=== PATIENT | female | born 1960 | race Caucasian/White ===

== ENCOUNTER 2020-01-28 08:54 | Outpatient (REF) | payer OTHER, SELFPAY ==
--- NOTE | 2020-01-28 09:03 | MM_ITS ---
EXAMINATION: BONE DENSITOMETRY CLINICAL INDICATION: Asymptomatic menopausal state. COMPARISON: This is the patient's baseline examination. TECHNIQUE: Using a [employer]ile DXA System (software version: 13.1) manufactured by [email or web address], dual-energy x-ray absorptiometry was performed of the lumbar spine and left hip. The images are of good technical quality. Summary results are attached. FINDINGS: AP SPINE L1-L2 (excluding L3 and L4): The data of L1-L4 has been changed to exclude the L3 and L4 vertebral bodies, because at these levels may cause overestimation of lumbar spine density. BMD 0.963 g/cm2, Z-score -0.9, T-score -1.7, osteopenia. LEFT FEMUR, NECK: BMD 0.831 g/cm2, Z-score -0.5, T-score -1.5, osteopenia. LEFT FEMUR, TOTAL: BMD 0.971 g/cm2, Z-score 0.3, T-score -0.3, normal. IDENTIFIED RISK FACTORS: Menopause. HISTORY OF FRACTURE: None listed. MEDICATIONS: None listed. MM/XR DEXA axial skeleton IMPRESSION: 1. DIAGNOSIS: Osteopenia based on the lowest T-score value of -1.7 in the lumbar spine applying World Health Organization criteria. 2. 10-YEAR FRACTURE RISK PREDICTION, FRAX: Major osteoporotic fracture (clinical spine, forearm, hip or shoulder) 7.6%. Hip fracture 0.6%. 3. Treatment Recommendations: NOF guidelines recommend consideration for treatment in postmenopausal women and men age 50 and older presenting with the following: -A hip or vertebral (clinical or morphometric) fracture. -T-score less than or equal to -2.5 at the femoral neck or spine after appropriate evaluation to exclude secondary causes. -Low bone mass at the hip or spine and a 10-year fracture probability by FRAX of greater than or equal to 3% for hip fracture or greater than or equal to 20% for major osteoporotic fracture based on the [place] adapted WHO algorithm. 4. Other Recommendations: All treatment decisions require clinical judgment and consideration of individual patient factors, including patient preferences, comorbidities, previous drug use, risk factors not captured in the FRAX model (e.g. frailty, falls, vitamin D deficiency, increased bone turnover, interval significant decline in bone density) and possible under or overestimation of fracture risk by FRAX. Additional medical evaluation for secondary cause of low bone mineral density may be appropriate. FUTURE SCAN RECOMMENDATION: People with diagnosed cases of osteoporosis or at high risk for fracture should have regular bone mineral density tests. For patients eligible for Medicare, routine testing is allowed once every 2 years. The testing frequency can be increased to one year for patients who have rapidly progressing disease, those who are receiving or discontinuing medical therapy to restore bone mass, or have additional risk factors.
--- NOTE | 2020-01-28 09:04 | MM_ITS ---
EXAMINATION: MM SCREENING DIGITAL BREAST TOMOSYNTHESIS, BILATERAL CLINICAL INFORMATION: Screening. Asymptomatic. Family history breast cancer in sister (age 40), as well as paternal and maternal aunts. The lifetime risk of breast cancer based on the Tyrer-Cuzick Model is 29%. COMPARISON: Outside mammography: 08/20/2018, 08/16/2017, 06/28/2016 TECHNIQUE: Digital breast tomosynthesis is performed in both the craniocaudal and mediolateral oblique views along with computer-aided detection (CAD). Synthesized 2D images are generated from the tomosynthesis. FINDINGS: There are scattered areas of fibroglandular density (ACR BI-RADS breast composition Category b). There are no significant masses, abnormal calcifications, or other abnormalities. There is a 0.6 cm smooth nodule central outer left breast, prior measurement 1.3 cm, suggesting regressing cyst. There is a biopsy clip marker again seen left mid upper outer quadrant. No significant changes from prior outside studies. MM/MM tomosynthesis screening BI IMPRESSION: No mammographic evidence of malignancy. ASSESSMENT: BI-RADS 2: Benign RECOMMENDATION: 1. Routine annual mammography screening. 2. The lifetime risk of breast cancer based on the Tyrer-Cuzick Model is 29%. Additional annual adjunct screening with breast MRI may be of benefit in women with a risk score of 20% or greater. This patient's information was entered into a reminder system with a target due date for their next mammogram.
[2020-03-04 08:20] LABS: SARS-COV-2 PCR UMBRL Not Detected
[2020-03-10 08:18] LABS: SARS-COV-2 PCR UMBRL Not Detected
[2020-03-18 11:15] LABS: SARS-COV-2 PCR UMBRL Not Detected
[2020-03-25 13:22] LABS: SARS-COV-2 PCR UMBRL Not Detected
== END 2020-01-28 08:55 | disposition home or self-care (01) ==
LOC: HO.MAMMO 08:54
PROVIDERS: PCP Internal Medicine; Visit Provider Internal Medicine
DX: Z12.31 Encounter for screening mammogram for malignant neoplasm of breast (principal); Z13.820 Encounter for screening for osteoporosis; Z78.0 Asymptomatic menopausal state; Z80.3 Family history of malignant neoplasm of breast
CPT/HCPCS: 36415; 77063; 77067; 77080; 87635; C9803; U0003

== ENCOUNTER 2020-02-26 08:26 | Outpatient (REF) | payer OTHER, SELFPAY ==
[2020-02-26 09:20] LABS: Cholesterol 267 mg/dL; Glucose Fasting 85 mg/dL (60-99); HDL Cholesterol 63 mg/dL; LDL Cholesterol Calculated 185 mg/dl; Triglycerides 99 mg/dL
== END 2020-02-26 08:27 | disposition home or self-care (01) ==
LOC: HO.LAB 08:26
PROVIDERS: PCP Internal Medicine; Visit Provider Internal Medicine
DX: Z00.00 Encounter for general adult medical examination without abnormal findings (principal)
CPT/HCPCS: 80061; 82947

== ENCOUNTER 2020-04-20 10:22 | Outpatient (REF) | payer OTHER, SELFPAY ==
[2020-04-20 10:41] LABS: COVID-19 Test Negative (Negative)
== END 2020-04-20 10:23 | disposition home or self-care (01) ==
LOC: HO.EMPCOV 10:22
PROVIDERS: Visit Provider Internal Medicine
DX: Z20.822 Contact with and (suspected) exposure to COVID-19 (principal)
CPT/HCPCS: 36415; 87635; C9803

== ENCOUNTER 2020-10-27 08:26 | Outpatient (REF) | payer OTHER, SELFPAY ==
--- NOTE | ~2020-10-27 | XR_ITS ---
EXAMINATION: XR FOOT, RIGHT CLINICAL INFORMATION: Right foot pain. Rule out heel spur COMPARISON: None TECHNIQUE: AP, lateral, and oblique views of the right foot. FINDINGS: The bones and soft tissues are normal. No fracture. Alignment is anatomic. Joint spaces are maintained. XR/XR foot RT min 3V IMPRESSION: Unremarkable right foot.
== END 2020-10-27 08:27 | disposition home or self-care (01) ==
LOC: HO.XRAY 08:26
PROVIDERS: PCP Internal Medicine; Visit Provider Chiropractor
DX: M79.671 Pain in right foot (principal)
CPT/HCPCS: 73630

== ENCOUNTER 2020-12-15 07:00 | Outpatient (RCR) | payer OTHER, SELFPAY | END 2021-05-06 14:45 | disposition home or self-care (01) | LOC: HO.PT 07:00 | PROVIDERS: PCP Internal Medicine; Visit Provider Internal Medicine | DX: M72.2 Plantar fascial fibromatosis (principal) | CPT/HCPCS: 97033; 97035; 97110; 97140; 97162 ==

== ENCOUNTER → 2021-01-04 12:18 | Outpatient (BNVA) | payer OTHER, SELFPAY | PROVIDERS: Visit Provider Physician Assistant | DX: M72.2 Plantar fascial fibromatosis (principal) | CPT/HCPCS: 20550; 99212; J1020 ==

== ENCOUNTER 2021-01-19 07:00 | Outpatient (RCR) | payer OTHER, SELFPAY | END 2021-02-17 07:40 | disposition home or self-care (01) | LOC: HO.PT 07:00 | PROVIDERS: PCP Internal Medicine; Visit Provider Internal Medicine | DX: M54.9 Dorsalgia, unspecified (principal) | CPT/HCPCS: 97014; 97110; 97140; 97162 ==

== ENCOUNTER 2021-03-03 16:08 | Outpatient (REF) | payer OTHER, SELFPAY ==
--- NOTE | ~2021-03-03 | MR_ITS ---
EXAMINATION: MR RIGHT FOOT WITH AND WITHOUT CONTRAST CLINICAL INFORMATION: Chronic foot pain, plantar fasciitis. Rule out heel spurs. COMPARISON: None TECHNIQUE: Multiplanar MR imaging was obtained to the right foot on a 1.5 Joy magnet without without intravenous contrast material. FINDINGS: ACHILLES TENDON: Normal. OTHER TENDONS: Intact. LIGAMENTS: Intact. BONE AND ARTICULAR CARTILAGE: Marrow signal is present at the plantar aspect of the calcaneal tuberosity with associated cortical irregularity and enthesopathic spurring. No fracture or malalignment. Articular cartilage appears well preserved. No talar osteochondral injuries. JOINT FLUID AND SOFT TISSUES: There is a ganglion cyst at the posteromedial margin of the subtalar joint extending into the sinus tarsi. This cyst has a dominant component measuring 1.2 x 0.6 x 1.5 cm. There is moderate fatty atrophy of the abductor digiti minimi muscle without significant edema signal. Musculature is otherwise unremarkable. No enhancing lesions. PLANTAR FASCIA: Central band of the plantar fascia is markedly thickened (9 mm) with associated intrasubstance and surrounding soft tissue edema signal. There is a small interstitial partial tear at the central band. The lateral band is involved to a lesser extent. SINUS TARSI AND TARSAL TUNNEL: The aforementioned 1.5 cm ganglion cyst is situated at the anterior margin of the sinus tarsi but does not appear to produce significant mass effect upon the tibial neurovascular structures. Sinus tarsi is unremarkable. MR/MR foot RT wo/w con IMPRESSION: 1. Severe plantar fasciitis with a small interstitial partial tear. 2. Fatty atrophy of the abductor digiti minimi. 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 3. No acute ligamentous abnormalities or tendon pathology.
== END 2021-03-03 16:09 | disposition home or self-care (01) ==
LOC: HO.MRI 16:08
PROVIDERS: PCP Internal Medicine; Visit Provider Internal Medicine
DX: M79.671 Pain in right foot (principal)
CPT/HCPCS: 73720; A9585

== ENCOUNTER 2021-03-18 08:38 | Outpatient (REF) | payer OTHER, SELFPAY ==
--- NOTE | ~2021-03-18 | MM_ITS ---
EXAMINATION: MM SCREENING DIGITAL BREAST TOMOSYNTHESIS, BILATERAL CLINICAL INFORMATION: Screening. Asymptomatic. The lifetime risk of breast cancer based on the Tyrer-Cuzick Model is 14%. COMPARISON: Mammography: 01/28/2020, outside mammography 08/20/2018, 08/16/2017 ([facility]). TECHNIQUE: Digital breast tomosynthesis is performed in both the craniocaudal and mediolateral oblique views along with computer-aided detection (CAD). Synthesized 2D images are generated from the tomosynthesis. FINDINGS: There are scattered areas of fibroglandular density (ACR BI-RADS breast composition Category b). There are no significant masses, abnormal calcifications, or other abnormalities. Circumscribed nodule mid 1:00 left breast is decreased from outside exam consistent with regressing cyst. There is a biopsy clip marker again seen mid 3:00 left breast with small adjacent stable nodular asymmetry. Dermal lesion overlies posterior upper right breast. No significant changes. MM/MM tomosynthesis screening BI IMPRESSION: No significant changes prior studies. ASSESSMENT: BI-RADS 2: Benign RECOMMENDATION: Routine annual mammography screening. This patient's information was entered into a reminder system with a target due date for their next mammogram.
== END 2021-03-18 08:39 | disposition home or self-care (01) ==
LOC: HO.MAMMO 08:38
PROVIDERS: PCP Internal Medicine; Visit Provider Internal Medicine
DX: Z12.31 Encounter for screening mammogram for malignant neoplasm of breast (principal)
CPT/HCPCS: 77063; 77067

== ENCOUNTER → 2021-12-28 09:12 | Outpatient (RCR) | payer OTHER, SELFPAY ==
[2020-01-20 08:04] LABS: COVID-19 Test Negative (Negative)
[2020-01-26 09:37] LABS: COVID-19 Test Negative (Negative)
[2020-02-02 09:10] LABS: COVID-19 Test Negative (Negative)
[2020-02-09 09:03] LABS: COVID-19 Test Negative (Negative); IDNOW Serial# 9DD0AD1C
== END | disposition home or self-care (01) ==
LOC: HO.EMPCOV 01-20 07:25
PROVIDERS: PCP Internal Medicine; Visit Provider Internal Medicine
DX: Z20.828 Contact with and (suspected) exposure to other viral communicable diseases (principal)
CPT/HCPCS: 87635; C9803; U0003

== ENCOUNTER 2022-03-08 07:25 | Outpatient (REF) | payer OTHER, SELFPAY ==
[2022-03-08 07:32] LABS: MANUAL DIFF FLAG NO
[2022-03-08 08:12] LABS: Basophils Absolute Auto 0.1 X10*3/uL (0.0-0.2); Basophils Percent Auto 1.1 % (0-2); Eosinophils Absolute Auto 0.2 X10*3/uL (0.0-0.4); Hematocrit 35.5 % (37.0-47.0); Hemoglobin 11.3 g/dl (12.0-16.0); Imm Gran Abs Auto 0.02 X10*3/uL (0.00-0.03); Imm Gran Pct Auto 0.4 % (0.0-0.4); Lymphocytes Absolute Auto 1.5 X10*3/uL (1.2-4.9); Lymphocytes Percent Auto 27.1 % (20-40); Mean Corpuscular HGB Conc 31.8 g/dl (31.0-35.0); Mean Corpuscular Hemoglobin 27.2 pg (27.0-33.0); Mean Corpuscular Volume 85.3 fL (80.0-98.0); Mean Platelet Volume 9.7 fL (9.4-12.3); Monocytes Absolute Auto 0.5 X10*3/uL (0.1-1.2); Monocytes Percent Auto 8.2 % (2-11); Neutrophils Absolute Auto 3.4 x10*3/uL (2.0-8.3); Neutrophils Percent Auto 60.2 % (45-73); Platelet Count 372 X10*3/uL (160-400); Red Blood Count 4.16 X10*6/uL (4.20-5.50); Red Cell Distribution Width 13.8 % (11.0-16.0); White Blood Count 5.6 X10*3/uL (4.8-10.8)
[2022-03-08 09:14] LABS: Anion Gap 10 (12-20); Blood Urea Nitrogen 13 mg/dL (9-16); Calcium 9.3 mg/dL (8.4-10.2); Carbon Dioxide 29 mmol/L (22-29); Chloride 106 mmol/L (96-108); Cholesterol 261 mg/dL; Estimated Glomerular Filt Rate > 60; Glucose Random 103 mg/dL (60-115); HDL Cholesterol 66 mg/dL; LDL Cholesterol Calculated 170 mg/dl; Potassium 4.6 mmol/L (3.3-5.1); Sodium 140 mmol/L (135-145); Triglycerides 125 mg/dL
== END 2022-03-08 07:26 | disposition home or self-care (01) ==
LOC: HO.LAB 07:25
PROVIDERS: PCP Internal Medicine; Visit Provider Internal Medicine
DX: Z00.00 Encounter for general adult medical examination without abnormal findings (principal); Z13.6 Encounter for screening for cardiovascular disorders; R53.83 Other fatigue
CPT/HCPCS: 36415; 80048; 80061; 84443; 85025

== ENCOUNTER 2022-03-27 07:25 | Outpatient (REF) | payer OTHER, SELFPAY ==
--- NOTE | ~2022-03-27 | MM_ITS ---
EXAMINATION: MM DIAGNOSTIC DIGITAL BREAST TOMOSYNTHESIS, BILATERAL US DIAGNOSTIC ULTRASOUND BREAST, RIGHT CLINICAL INFORMATION: Due for yearly. Recent right axillary tenderness. No palpable mass. No discharge. The lifetime risk of breast cancer based on the Tyrer-Cuzick Model is 10%. COMPARISON: Mammography: 03/18/2021; 6 outside mammography 08/20/2018, 08/16/2017 ([facility]). TECHNIQUE: Digital breast tomosynthesis is performed in both the craniocaudal and mediolateral oblique views along with computer-aided detection (CAD). Synthesized 2D images are generated from the tomosynthesis. Ultrasound right side is targeted to the area of clinical symptoms, axillary region. Grayscale imaging and color Doppler are performed without and with harmonics. FINDINGS: There are scattered areas of fibroglandular density (ACR BI-RADS breast composition Category b). Parenchymal pattern is similar to prior study. There is no developing density or interval mass or architectural abnormality. No abnormal calcifications. The axilla and skin contours are unremarkable. No adenopathy. No skin thickening or coarsening of the Abhilash's ligaments. Again, there is old biopsy clip marker mid upper outer left breast. Benign smooth nodule central mid upper outer left breast is decreased in size from outside exams consistent with regressing cyst. Ultrasound right axilla demonstrates no cystic or solid mass, architectural abnormality, skin thickening, or edema tracking in soft tissue planes. No lymphadenopathy. Incidental node near area of palpable concern shows normal bianca architecture and color flow and measures only 0.5 x 0.8 cm. Results are discussed with the patient at time of visit. MM/MM tomosynthesis diagnostic BI IMPRESSION: 1. No mammographic evidence of malignancy or inflammatory changes. 2. Unremarkable targeted right axillary ultrasound. ASSESSMENT: BI-RADS 2: Benign RECOMMENDATION: 1. Patient's right axillary pain should be managed based on the clinical impression. 2. Otherwise, routine annual screening mammography. This patient's information was entered into a reminder system with a target due date for their next mammogram.
== END 2022-03-27 07:26 | disposition home or self-care (01) ==
LOC: HO.MAMMO 07:25
PROVIDERS: Visit Provider Internal Medicine
DX: N64.4 Mastodynia (principal)
CPT/HCPCS: 76642; 77062; 77066

== ENCOUNTER 2023-03-01 07:44 | Outpatient (REF) | payer OTHER, SELFPAY ==
--- NOTE | ~2023-03-01 | XR_ITS ---
EXAMINATION: LUMBAR SPINE, PELVIS AND LEFT HIP CLINICAL INFORMATION: Pain COMPARISON: None available. TECHNIQUE: 5 views lumbosacral spine, single view pelvis with 2 additional views left hip FINDINGS: Moderate degenerative changes are present in the lumbosacral spine with some mild disc space narrowing at L3-L4 and moderate disc space narrowing at L4-L5 and L5-S1. There is associated mild osteophytes and endplate sclerosis degenerative changes are present at the L3-L4 and L4-L5 facet joints bilaterally. No fractures or bony destructive lesions. Pelvis and hips appear normal. XR/XR hip LT w PEL1V IMPRESSION: Degenerative changes in the lumbosacral spine as described above.
--- NOTE | ~2023-03-01 | XR_ITS ---
EXAMINATION: LUMBAR SPINE, PELVIS AND LEFT HIP CLINICAL INFORMATION: Pain COMPARISON: None available. TECHNIQUE: 5 views lumbosacral spine, single view pelvis with 2 additional views left hip FINDINGS: Moderate degenerative changes are present in the lumbosacral spine with some mild disc space narrowing at L3-L4 and moderate disc space narrowing at L4-L5 and L5-S1. There is associated mild osteophytes and endplate sclerosis degenerative changes are present at the L3-L4 and L4-L5 facet joints bilaterally. No fractures or bony destructive lesions. Pelvis and hips appear normal. XR/XR lumbar spine 4V min IMPRESSION: Degenerative changes in the lumbosacral spine as described above.
== END 2023-03-01 07:45 | disposition home or self-care (01) ==
LOC: HO.XRAY 07:44
PROVIDERS: PCP Internal Medicine; Visit Provider Chiropractor
DX: R10.2 Pelvic and perineal pain (principal); M25.552 Pain in left hip
CPT/HCPCS: 72110; 73502

== ENCOUNTER 2023-03-28 15:39 | Emergency (ER) | payer OTHER, SELFPAY ==
[2023-03-28] VITALS (8 sets, daily range): BP systolic 96–112; BP diastolic 63–76; PULSE 64–78; RESP 13–18; TEMP 36.4–36.8; O2SAT 94–99; BMI 25.7
--- NOTE | 2023-03-28 16:01 | ECG_ITS ---
Test Reason : NEAR SYNCOPE Blood Pressure : / mmHG Vent. Rate : 064 BPM Atrial Rate : 064 BPM P-R Int : 122 ms QRS Dur : 070 ms QT Int : 428 ms P-R-T Axes : 035 049 065 degrees QTc Int : 441 ms Normal sinus rhythm Normal ECG No previous ECGs available Referred By: Salima Gonzalez Electronically Signed By:NASIM ARRIAGA
[2023-03-28 16:18] LABS: MANUAL DIFF FLAG NO
[2023-03-28 16:21] LABS: Basophils Percent Auto 0.7 % (0-2); Eosinophils Absolute Auto 0.2 X10*3/uL (0.0-0.4); Eosinophils Percent Auto 3.8 % (0-4); Hematocrit 37.3 % (37.0-47.0); Hemoglobin 12.4 g/dl (12.0-16.0); Imm Gran Abs Auto 0.01 X10*3/uL (0.00-0.03); Imm Gran Pct Auto 0.2 % (0.0-0.4); Lymphocytes Absolute Auto 1.8 X10*3/uL (1.2-4.9); Lymphocytes Percent Auto 32.6 % (20-40); Mean Corpuscular HGB Conc 33.2 g/dl (31.0-35.0); Mean Corpuscular Hemoglobin 27.8 pg (27.0-33.0); Mean Corpuscular Volume 83.6 fL (80.0-98.0); Mean Platelet Volume 9.6 fL (9.4-12.3); Monocytes Absolute Auto 0.5 X10*3/uL (0.1-1.2); Monocytes Percent Auto 8.6 % (2-11); Neutrophils Percent Auto 54.1 % (45-73); Platelet Count 324 X10*3/uL (160-400); Red Blood Count 4.46 X10*6/uL (4.20-5.50); Red Cell Distribution Width 13.5 % (11.0-16.0); White Blood Count 5.6 X10*3/uL (4.8-10.8)
[2023-03-28] MEDS: 0.9 % Sodium Chloride 1,000 ML 999 ML IV (16:21)
[2023-03-28] MEDS: ondansetron HCL 4 MG/2 ML VIAL IVPUSH (16:23)
--- NOTE | 2023-03-28 16:26 | ED.DIZZY ---
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 She was able to sit down and staff presented to bedside to evaluate her and she was founf to be hypotensive 80/40 with pulse 84 and diaphoretic. She Donated blood at approximately 14:15, she reports today her hgb was an acceptable level, though the few times prior she attempted it was 1pt below cut-off, she also states her blood pressure was 90 SBP, also near cut-off. She has donated blood in the past without complication. She reports that she consumed a full lunch around 12:00, and has been consuming plenty of water. At the time of my examination she is feeling near normal, but states things still seem a little fuzzy . She denies any precipitating symptoms. Currently denies overt headache/ pain just fuzzy , chest pain, neck pian, SOB, ABD pain, numbness or tingling. Related Data Allergies Allergy/AdvReac Type Severity Reaction Status Date / Time Penicillins Allergy Mild Unknown Verified 01/04/21 12:32 Review of Systems Review of Systems: Yes all other systems are reviewed and are negative PMFSH Past Medical History Attestation statement: The following information was validated with the patient. Source: old records reviewed Onset Date is defined in the Problem List Problems that require an onset date and time if occurred within 24 hrs of arrival to the ED Aortic Dissection and Rupture; Neurologic impairment; Cardiopulmonary Arrest; Endotracheal Intubation; Insertion or Replacement of Mechanical Circulatory Assist Device Social History Social History Unable to assess alcohol history related to: Unable to respond Smoked in Last 30 Days: No Use of substances other than those prescribed or required for medical reasons: No Advance Directives: Yes Advance Directives Information Provided: No Advance Directives on File: No Patient : No Physical Exam Vital Signs: Vital Signs: Last Vital Signs Temp 98.2 F 03/28/23 18:17 Pulse 76 03/28/23 19:09 Resp 16 03/28/23 18:17 BP 112/76 03/28/23 19:09 Pulse Ox 98 03/28/23 18:17 O2 Del Method Room Air 03/28/23 18:17 BMI result Body Mass Index 25.7 Appearance: Alert.?Oriented to person, place and time. No acute distress.?Normal affect. Eyes: Pupils equal, round and reactive to light.? ENT: Pharynx normal.?? Neck: Normal inspection.? Neck supple.?? CVS: Heart sounds normal. Normal heart rate and rhythm.? Pulses normal.?? Respiratory: No respiratory distress.? Lung sounds clear to auscultation bilaterally?? Abdomen: Soft and non-tender. Normoactive bowel sounds. No pulsatile mass.?? Skin: Skin warm and dry.? Normal skin color.? ? Extremities: No lower extremity edema.? No calf ttp? Neuro: Moves all extremities spontaneously. Sensation intact bilaterally. CN II-XII intact. No focal neuro deficits. Ambulates with normal steady gait. NIH Stroke Scale Time: 16:15 Level of Consciousness: Alert Level of Consciousness Questions: Answers both questions correctly Level of Consciousness Commands: Performs both tasks correctly Best Gaze: Normal Visual: No visual loss Facial Palsy: Normal Motor Arm (Right): No drift Motor Arm (Left): No drift Motor Leg (Right): No drift Motor Leg (Left): No drift Limb Ataxia: Absent Sensory: Normal Best Language: No aphasia Dysarthia: Normal Extinction and Inattention: No abnormality Score: 0 Course Reevaluation(s) Reevaluation #1: CBC is without leukocytosis or anemia. CMP reveals elevated BUN at 20 and creatinine 1.06 which is slightly increased when compared to prior labs in February of 2022, I suspect any a component of dehydration attributing to her symptoms today, she is received 1 L IV fluids. Nursing staff was able to assess orthostatic vital signs from supine to sitting position, blood pressure increased rather than decreased, however due to her feelings of dizziness she felt unable to stand. Reevaluation #2: Delta troponin is negative, unlikely ACS. I suspect that her symptoms are secondary to vasovagal episode after recent blood draw and possible component of dehydration as well. She is feeling much improved at this time. Headache has resolved. She has had no further dizziness or nausea. She is eating and drinking normally. She has been ambulatory to the bathroom with a steady gait. Orthostatic vital signs negative. At this time feel that she is stable for discharge home, outpatient follow-up with primary care provider. Discussed worrisome signs and symptoms that would warrant re-evaluation in the emergency department, strict return precautions. All questions answered. Stable for discharge. Time: 20:09 Medications Administered Discontinued Medications Generic Name Dose Route Start Last Admin Trade Name Sharda PRN Reason Stop Dose Admin Acetaminophen 975 mg 03/28/23 17:16 03/28/23 17:26 Acetaminophen 325 Mg Tablet PO 03/28/23 17:17 975 mg ONCE ONE Administration Sodium Chloride 1,000 mls @ 999 mls/hr 03/28/23 16:15 03/28/23 17:43 Ns IV 03/28/23 17:15 Infused .Q1H1M [facility] Infusion Ondansetron HCl 4 mg 03/28/23 16:01 03/28/23 16:23 Ondansetron Hcl 4 Mg/2 Ml Vial IVPUSH 03/28/23 16:02 4 mg ONCE ONE Administration Medical Decision Making Medical Decision Making [facility] Narrative: Patient is a 62 year old female with pmhx depression who presents for near syncopal episode as per HPI soon after donating blood. She feels near normal now, with some head fuzziness and mild nausea. No focal neurological defecits. CA&Ox3, speaking clear full sentences. Vitals are stable, but BP is soft. I suspect a vasovagal episode in the setting of recent blood transfusion, however to exclude alternative etiology Will obtain CBC to evaluate for leukocytosis/ anemia, CMP and lipase to evaluate for abnormal electrolytes /abnormal renal function/ abnormal hepatic/biliary function, EKG and troponin to evaluate for ischemia/ACS, and orthostatic vital signs. Differential Diagnosis Differential Diagnoses: The differential diagnosis associated with the presentation includes (as noted above) Admission/Observation Consideration of admission/observation: Escalation of care including admission/observation considered (see narrative above and course narrative for further detail) Lab Data [facility] Lab Attestation statement: I reviewed the patient's lab results. (see course narrative) 03/28/23 16:12 03/28/23 16:12 Labs: Lab Results 03/28/23 03/28/23 03/28/23 Range/Units 16:12 16:45 18:53 WBC 5.6 (4.8-10.8) X10*3/uL RBC 4.46 (4.20-5.50) X10*6/uL Hgb 12.4 (12.0-16.0) g/dl Hct 37.3 (37.0-47.0) % MCV 83.6 (80.0-98.0) fL MCH 27.8 (27.0-33.0) pg MCHC 33.2 (31.0-35.0) g/dl RDW 13.5 (11.0-16.0) % Plt Count 324 (160-400) X10*3/uL MPV 9.6 (9.4-12.3) fL Immature Gran % (Auto) 0.2 (0.0-0.4) % Neut % (Auto) 54.1 (45-73) % Lymph % (Auto) 32.6 (20-40) % [place]t % (Auto) 8.6 (2-11) % Eos % (Auto) 3.8 (0-4) % Baso % (Auto) 0.7 (0-2) % Lymph # (Auto) 1.8 (1.2-4.9) X10*3/uL [place] # (Auto) 0.5 (0.1-1.2) X10*3/uL Eos # (Auto) 0.2 (0.0-0.4) X10*3/uL Baso # (Auto) 0.0 (0.0-0.2) X10*3/uL Abs Immat Gran (auto) 0.01 (0.00-0.03) X10*3/uL Absolute Neuts (auto) 3.0 (2.0-8.3) x10*3/uL Absolute Nucleated RBC 0.000 (0.0-0.012) X10*3/uL Nucleated RBC % (auto) 0.0 (0.0-0.2) /100WBC Sodium 139 (135-145) mmol/L Potassium 3.6 (3.3-5.1) mmol/L Chloride 106 (96-108) mmol/L Carbon Dioxide 24 (22-29) mmol/L Anion Gap 13 (12-20) BUN 20 H (9-16) mg/dL Creatinine 1.06 (0.5-1.4) mg/dL Estim Creat Clear Calc 56.7 Estimated GFR 53 POC Glucose 135 H (60-115) mg/dL Random Glucose 164 H (60-115) mg/dL Calcium 9.3 (8.4-10.2) mg/dL Magnesium 1.8 (1.6-2.6) mg/dL Total Bilirubin 0.3 (0.0-1.0) mg/dL AST 19 (5-31) U/L ALT 26 (0-31) U/L Alkaline Phosphatase 78 (39-117) U/L Troponin I High Sens < 2.7 < 2.7 (<3.5-17.0) ng/L B-Natriuretic Peptide 22 (<100) pg/mL Total Protein 6.8 (6.5-8.0) g/dL Albumin 4.0 (3.5-5.0) g/dL Independent Interpretation I performed an independent interpretation of an: EKG Interpretation: Rate: 64 Rhythm:? Normal sinus rhythm Patton:? Normal Normal P waves.? Normal JASIEL.?? Normal QRS complex.?? ST T wave :??No ST elevation, no ST depression, no T-wave inversion qTC: 441 prior studies:? No prior available for review The study has been interpreted contemporaneously by me. Independent Historian Clinical information obtained from an independent historian. History obtained from or confirmed by: Spouse (present at bedside, confirms pmhx) Discharge Plan Discharge Clinical Impression: Vasovagal syncope Patient Disposition: Home, Self-Care Instructions: Near Syncope (ED) Additional Instructions: Return back to emergency department any new or worsening symptoms or concerns. Persistent dizziness, passing out episodes, headache that will not go away, chest pain, shortness of breath, numbness or tingling of the extremities, difficulty walking, difficulty speaking. Please contact your primary care provider and arrange for a follow-up visit within 3 days. Be sure to stay well hydrated, eat small frequent meals, change position slowly if you begin to develop any dizziness. Referrals: Helder Billingsley MD [Primary Care Provider] -
[2023-03-28 16:36] LABS: Alanine Aminotransferase 26 U/L (0-31); Alkaline Phosphatase 78 U/L (39-117); Anion Gap 13 (12-20); Aspartate Amino Transferase 19 U/L (5-31); Bilirubin Total 0.3 mg/dL (0.0-1.0); Blood Urea Nitrogen 20 mg/dL (9-16); Calcium 9.3 mg/dL (8.4-10.2); Carbon Dioxide 24 mmol/L (22-29); Chloride 106 mmol/L (96-108); Creatinine Clr Calc Pharmacy 56.7; Estimated Glomerular Filt Rate 53; Glucose Random 164 mg/dL (60-115); Magnesium 1.8 mg/dL (1.6-2.6); Potassium 3.6 mmol/L (3.3-5.1); Sodium 139 mmol/L (135-145); Total Protein 6.8 g/dL (6.5-8.0)
[2023-03-28 16:41] LABS: B Type Natriuretic Peptide 22 pg/mL (<100)
[2023-03-28 16:43] LABS: Troponin-I High Sensitivity < 2.7 ng/L (<3.5-17.0)
[2023-03-28 16:49] LABS: Glucose, Whole Blood 135 mg/dL (60-115)
[2023-03-28] MEDS: Acetaminophen 325 MG TABLET 975 MG PO (17:26)
[2023-03-28 19:18] LABS: Troponin-I High Sensitivity < 2.7 ng/L (<3.5-17.0)
--- NOTE | 2023-03-28 19:43 | PC.NURSE ---
Patient was able to walk without issues, no dizziness noted. SOLIMAN with steady gait.
== END 2023-03-28 20:24 | disposition home or self-care (01) ==
PROVIDERS: Nurse Practitioner Family; Emergency Provider Internal Medicine; PCP Internal Medicine
DX: R55 Syncope and collapse (principal); R11.0 Nausea
CPT/HCPCS: 36415; 80053; 82947; 83735; 83880; 84484; 85025; 93005; 96361; 96374; 99284; 99285; J2405

== ENCOUNTER → 2023-03-28 16:01 | Outpatient (BNV) | payer OTHER, SELFPAY | PROVIDERS: Emergency Provider Internal Medicine; PCP Internal Medicine; Visit Provider Internal Medicine | DX: R55 Syncope and collapse (principal) | CPT/HCPCS: 93010 ==

== ENCOUNTER 2023-04-02 07:19 | Outpatient (REF) | payer OTHER, SELFPAY ==
--- NOTE | ~2023-04-02 | MM_ITS ---
EXAMINATION: MM SCREENING DIGITAL BREAST TOMOSYNTHESIS, BILATERAL CLINICAL INFORMATION: Screening. Asymptomatic. COMPARISON: Mammography: This study is compared with prior exams dating back to 2019. TECHNIQUE: Digital breast tomosynthesis is performed in both the craniocaudal and mediolateral oblique views along with computer-aided detection (CAD). Synthesized 2D images are generated from the tomosynthesis. FINDINGS: There are scattered areas of fibroglandular density (ACR BI-RADS breast composition Category b). There are no significant masses, abnormal calcifications, or other abnormalities. There is a tissue marker in the upper outer quadrant of the left breast from prior benign percutaneous biopsy. MM/MM tomosynthesis screening BI IMPRESSION: No mammographic evidence of malignancy. ASSESSMENT: BI-RADS BI-RADS 2 - Benign Findings RECOMMENDATION: Routine annual mammography screening. 1 year F/U This examination should not preclude the clinical evaluation of a suspicious palpable abnormality. This patient's information was entered into a reminder system with a target due date for their next mammogram.
== END 2023-04-02 07:20 | disposition home or self-care (01) ==
LOC: HO.MAMMO 07:19
PROVIDERS: PCP Internal Medicine; Visit Provider Internal Medicine
DX: Z12.31 Encounter for screening mammogram for malignant neoplasm of breast (principal)
CPT/HCPCS: 77063; 77067

== ENCOUNTER → 2023-04-02 07:30 | Outpatient (BNV) | payer OTHER, SELFPAY | PROVIDERS: PCP Internal Medicine; Visit Provider Radiology Diagnostic Radiology | DX: Z12.31 Encounter for screening mammogram for malignant neoplasm of breast (principal) | CPT/HCPCS: 77063; 77067 ==

== ENCOUNTER 2023-04-12 07:00 | Outpatient (RCR) | payer OTHER, SELFPAY | END 2023-05-04 15:11 | disposition home or self-care (01) | LOC: HO.PT 07:00 | PROVIDERS: PCP Internal Medicine; Visit Provider Internal Medicine | DX: M54.9 Dorsalgia, unspecified (principal) | CPT/HCPCS: 97110; 97140; 97161 ==

== ENCOUNTER 2023-04-24 07:27 | Outpatient (REF) | payer OTHER, SELFPAY ==
[2023-04-24 07:58] LABS: Alanine Aminotransferase 34 U/L (0-31); Alkaline Phosphatase 99 U/L (39-117); Anion Gap 13 (12-20); Aspartate Amino Transferase 34 U/L (5-31); Bilirubin Total 0.2 mg/dL (0.0-1.0); Blood Urea Nitrogen 16 mg/dL (9-16); Calcium 8.7 mg/dL (8.4-10.2); Carbon Dioxide 22 mmol/L (22-29); Chloride 109 mmol/L (96-108); Estimated Glomerular Filt Rate > 60; Glucose Random 95 mg/dL (60-115); Potassium 4.2 mmol/L (3.3-5.1); Sodium 140 mmol/L (135-145)
== END 2023-04-24 07:28 | disposition home or self-care (01) ==
LOC: HO.LAB 07:27
PROVIDERS: PCP Internal Medicine; Visit Provider Chiropractor
DX: R55 Syncope and collapse (principal)
CPT/HCPCS: 36415; 80053

== ENCOUNTER 2023-08-15 11:42 | Day surgery (SDC) | payer OTHER, SELFPAY ==
[2023-08-15 11:56] VITALS: BMI 26.8
[2023-08-15 12:00] VITALS: BMI 26.8
[2023-08-15 12:09] VITALS: BP 115/81; PULSE 75; RESP 16; TEMP 36.8; O2SAT 97
[2023-08-15] MEDS: Lactated Ringers 1,000 ML 100 ML IVCONT (12:21)
--- NOTE | 2023-08-15 12:43 | HO.ANESPROP2 ---
HPI - Anesthesia Eval Consult details Narrative: 62 yo F presenting for colonoscopy. PMFSH Active Problems Active Problems: All Active Problems Plantar fasciitis of right foot (Acute) Family History Family history of problems with anesthesia: No Surgical History History of Problems with Anesthesia: No Social History Social History Unable to assess alcohol history related to: Unable to respond Patient Tobacco Use Status: Never used Tobacco Use of substances other than those prescribed or required for medical reasons: No Are you DNR?: No Advance Directives: No Advance Directives Information Provided: Yes Meds Allergies Allergy/AdvReac Type Severity Reaction Status Date / Time Penicillins Allergy Mild Unknown Verified 01/04/21 12:32 Active Medications: Current Medications Lactated Ringer's (Lr) 1,000 mls @ 100 mls/hr IVCONT .Q10H [place] Last Admin: 08/15/23 12:21 Dose: 100 mls/hr Home Medications ?Medication ?Instructions ?Recorded ?Confirmed ?Last Taken ?Type buspirone 15 mg tablet 15 mg PO TID 08/15/23 08/15/23 Unknown History sertraline 100 mg tablet 100 mg PO DAILY 08/15/23 08/15/23 Unknown History Exam Exam Date and Time: August 15, 2023 1228 Height,Weight and Vital Signs: Height 5 ft 5 in Weight 73.113 kg Last Vital Signs Temp 98.3 F 08/15/23 12:09 Pulse 75 08/15/23 12:09 Resp 16 08/15/23 12:09 BP 115/81 08/15/23 12:09 Pulse Ox 97 08/15/23 12:09 O2 Del Method Room Air 08/15/23 12:09 Airway Mallampati Class: I TM Dist: >3cm Neck ROM: Full Partial: Upper and Lower Heart: S1S2 Lungs: CTAB Assessment and Plan Assessment Anesthesia Assessment: Anesthesia Plan Discussed and Chart Reviewed Final Anesthetic Review Family History of Problems with Anesthesia: No History of Problems with Anesthesia: No NPO: Yes ASA Class: I Final Preanesthetic Review: No Changes in Pt Med Stat, Meds/Allgs Chart Reviewed, Consent Obtained/Reviewed and Anes Risks/Benef Reviewed Patient Risk: Low Procedure Risk: Low Anesthetic Plan Anesthetic Plan: MAC: and Agree w/ Assess. and Plan Disposition: Standard PACU
--- NOTE | 2023-08-15 13:03 | MHC.SHP ---
Pre-Procedural Eval Section A - 24 Hr Update-Section A only Date of Service: 08/15/23 The patient is an INPATIENT: No Changes since office visit: No Cold of Flu in the past 2 weeks, No New Medical Problems, No Changes in Medication and No Patient answered all questions The patient has been examined within 24 hours of the surgical procedure. The History & Physical has been completed within 30 days and I have reviewed it.: Yes Section B - Complete if H&P > 30 days Chief Complaint: Encounter for screening for malignant neoplasm of Allergies: Allergies Allergy/AdvReac Type Severity Reaction Status Date / Time Penicillins Allergy Mild Unknown Verified 01/04/21 12:32 Plan I have reviewed the history and physical and performed a pertinent physical examination on my patient. No changes have occurred unless specified. Time Spent With Patient Time: Total time managing care of this patient today ____ minutes.
[2023-08-15 13:52] VITALS: BP 98/61; PULSE 66; RESP 16; TEMP 36.1; O2SAT 95
[2023-08-15 14:00] VITALS: BP 93/62; PULSE 60; RESP 16; O2SAT 98
[2023-08-15 14:15] VITALS: BP 105/70; PULSE 58; RESP 15; O2SAT 99
--- NOTE | 2023-08-15 15:48 | OP_ITS ---
DATE OF SERVICE: 08/15/2023 SURGEON: Jeff Jeffers MD INDICATIONS: Colon cancer screening and prior history of adenomatous colon polyps. PREOPERATIVE DIAGNOSIS: POSTOPERATIVE DIAGNOSIS: PROCEDURE PERFORMED: Colonoscopy to the terminal ileum with biopsy. ESTIMATED BLOOD LOSS: COMPLICATIONS: ANESTHESIA: Monitored anesthesia care. ASSISTANTS: SPECIMENS: DESCRIPTION OF PROCEDURE: A history and physical was performed. The risks and benefits of the procedure were explained to the patient and informed consent was obtained. The patient was placed in the left lateral decubitus position. A digital rectal exam was performed and was found to be normal. The Olympus pediatric video colonoscope was introduced into the rectum and advanced to the cecum. The cecum was identified by transillumination, palpation, and identification of ileocecal valve. Examination was performed and the scope was removed. She tolerated the procedure well and was returned to the recovery area in stable condition. FINDINGS: The terminal ileum was normal. The visualized colonic mucosa was normal. The quality of the prep was good. Two polyps were identified, both measured less than 5 mm and were removed with the biopsy forceps. These were located in the cecum and at 60 cm. No other polyps were identified. There was minimal sigmoid diverticulosis. Retroflexed examination showed some small internal hemorrhoids and hypertrophic anal papillae. IMPRESSION: Colon polyps. RECOMMENDATION: Follow up the biopsy results. MD JUSTINA Duarte/ELIOL / [id number]
== END 2023-08-15 15:05 | disposition home or self-care (01) ==
PROVIDERS: PCP Internal Medicine; Visit Provider Internal Medicine Gastroenterology
PROC: 0DJD8ZZ Inspection of Lower Intestinal Tract, Via Natural or Artificial Opening Endoscopic (ICD-10-PCS; CPT 45378; principal; 2023-08-15 13:00)
DX: Z12.11 Encounter for screening for malignant neoplasm of colon (principal); D12.0 Benign neoplasm of cecum; K63.5 Polyp of colon; K57.30 Diverticulosis of large intestine without perforation or abscess without bleeding; K64.8 Other hemorrhoids; K62.89 Other specified diseases of anus and rectum; Z86.010 Personal history of colon polyps; Z88.0 Allergy status to penicillin
CPT/HCPCS: 45380; 88305; J2704

== ENCOUNTER 2024-04-07 07:23 | Outpatient (REF) | payer OTHER, SELFPAY ==
--- OUTSIDE RECORDS SUMMARY | 2024-04-07 07:26 | XMS_ITS ---
Author Organization [facility] Address [address] [place] [address] Care Team Providers Care Director Fraud Name Role Phone Helder Billingsley MD Primary Care Provider Jeff Michel Jr Unavailable REASON FOR VISIT screening Encounters Encounter Location Date Provider Diagnosis [facility] [place] [address] [place] [phone] 08/15/2023 Jeff Jeffers Jr Encounter for screening colonoscopy Z12.11 and Colon polyps K63.5 ASSESSMENTS Encounter Date Diagnosis Assessment Notes Treatment Notes Treatment Clinical Notes 08/15/2023 Encounter for screening colonoscopy (ICD-10 - Z12.11) 08/15/2023 Colon polyps (ICD-10 - K63.5) PLAN OF TREATMENT No Information
--- OUTSIDE RECORDS SUMMARY | 2024-04-07 07:26 | XMS_ITS ---
Author Organization [facility] Address [address] [place] [phone] Care Team Providers Care Chaser Helper Name Role Phone Helder Billingsley MD Primary Care Provider Jeff Michel Jr Unavailable REASON FOR VISIT pathology Encounters Encounter Location Date Provider Diagnosis [facility] [address] [place] [phone] 08/20/2023 Jeff Jeffers Jr PLAN OF TREATMENT No Information
--- OUTSIDE RECORDS SUMMARY | 2024-04-07 07:26 | XMS_ITS ---
Author Organization [facility] Address [address] [place] [address] Care Team Providers Care Volunteer Services Manager Name Role Phone Helder Billingsley MD Primary Care Provider Jeff Michel Jr [phone] REASON FOR VISIT H & P Encounters Encounter Location Date Provider Diagnosis [facility] [address] [place] [address] 08/14/2023 Jeff Jeffers Jr PLAN OF TREATMENT No Information
--- OUTSIDE RECORDS SUMMARY | 2024-04-07 07:26 | XMS_ITS | Patient Health Record ---
Author Organization [facility] Address [address] [place] [address] Care Team Providers Care Brass Reclaimer Name Role Phone Jose Cruz CAMACHO, Helder Primary Care Provider Jeff Michel Jr Unavailable ALLERGIES Allergen (clinical drug ingredient) Drug/Non Drug Allergy documented on EMR Reaction Allergy Type Onset Date Status Penicillin Unknown Drug Allergy Active RESULTS Component Value Reference Range Notes Pathology Reviewed date:08/20/2023 08:43:10 AM Interpretation: Performing Lab:[facility], [address] [place] [phone] Notes/Report: REASON FOR REFERRAL No Information MEDICATIONS Medication SIG (Take, Route, Frequency, Duration) Notes Start Date End Date Status busPIRone HCl 15 MG Oral for 30 Active MiraLax (colon prep) 17 GM/SCOOP mixed with Gatorade or Crystal Light Orally begin at 5:00 p.m. the day before the procedure for 1 day 07/25/2023 Active Estradiol 0.1 MG/GM Vaginal for 90 Active Sertraline HCl 100 MG Oral for 90 Active IMMUNIZATIONS Vaccine Route Administration Date Status Comme nts Influenza Unknown 01/30/2023 Administered SOCIAL HISTORY Tobacco Use: Social History Observation Description Date Details (start date - stop date) Never Smoker NA - NA Sex Assigned At : Social History Observation Description Sex Assigned At Unknown Tobacco Use/Smoking Question Answer Notes Patient is a nonsmoker Alcohol Screen Question Answer Notes Did you have a drink contain ing alcohol in the past year? Yes How often did you have a dri nk containing alcohol in the past year? 2 to 3 times a week (3 points) How many drinks did you have on a typical day when you were drinking in the past year? 1 or 2 drinks (0 point) How often did you have 6 or more drinks on one occasion in the past year? Never (0 point) Points 3 Interpretation Positive PROBLEMS Problem Type ICD Code Onset Dates Problem Status W/U Status Risk SNOMED Code Notes Problem Colon cancer screening (Z12.11) Active confirmed 003679622 Problem Encounter for other preprocedural examination (Z01.818) Active confirmed [id number] VITAL SIGNS Temperature 97.8 degrees Fahrenheit 07/25/2023 Blood pressure diastolic 00 mm Hg 07/25/2023 Height 5 ft 5 in in 07/25/2023 Blood pressure systolic 000 mm Hg 07/25/2023 Weight 164 lbs 07/25/2023 BMI 27.29 kg/m2 07/25/2023 Encounters Encounter Location Date Provider Diagnosis [facility] [place] [address] [place] [phone] 08/15/2023 Jeff Jeffers Jr Encounter for screening colonoscopy Z12.11 and Colon polyps K63.5 [facility] [address] [place] [phone] 07/25/2023 Jeff Jeffers Jr Colon cancer screening Z12.11 and Encounter for other preprocedural examination Z01.818 [facility] [address] [place] [phone] 08/14/2023 Jeff Jeffers Jr [facility] [address] [place] [phone] 08/14/2023 Jeff Jeffers Jr [facility] [address] [place] [phone] 08/20/2023 Jeff Jeffers Jr ASSESSMENTS Encounter Date Diagnosis Assessment Notes Treatment Notes Treatment Clinical Notes 08/15/2023 Encounter for screening colonoscopy (ICD-10 - Z12.11) 08/15/2023 Colon polyps (ICD-10 - K63.5) 07/25/2023 Colon cancer screening (ICD-10 - Z12.11) 07/25/2023 Encounter for other preprocedural examination (ICD-10 - Z01.818) PLAN OF TREATMENT Future Test Test Name Order Date COLONOSCOPY 07/25/2023 Insurance Providers Payer Name Payer Address Payer Phone Subscriber Number Group Number Insured Name Patient Relationship to Insured Coverage Start Date Coverage End Date [employer] [address] [address] [place] [address] [id number] AMELIA MOSCOSO Self - patient is the insured MEDICAL (GENERAL) HISTORY Medical History History ICD Code Anxiety Asthma Eczema LILA Surgical History Surgery Date(Month/Year)
--- OUTSIDE RECORDS SUMMARY | 2024-04-07 07:26 | XMS_ITS | Patient Health Record ---
Author Organization [facility] Address [address] [place] [address] Care Team Providers Care Acting Instructor Name Role Phone RONNIE SINGH M.D. Primary Care Provider Unavaila Krystle Gracia Unavailable [phone] Allergies Allergen (clinical drug ingredient) Drug/Non Drug Allergy documented on EMR Reaction Allergy Type Onset Date Status Penicillin rash Drug Allergy Active Reason For Referral No Information Medications Medication SIG (Take, Route, Frequency, Duration) Notes Start Date End Date Status Sertraline HCl 50 MG 1 tablet Orally Onc e a day also takes 25mg tab Active Plan Of Treatment Pending Test Test Name Order Date Ultrasound : Abdomen and Pelvis 04/21/19 15 Chlamydia/GC, DNA Probe 04/21/2014 MAMMOGRAM, SCREENING 04/21/2014 Urine Culture and Sensitivity 04/21/2014 Urinalysis 04/21/2014 Insurance Providers Payer Name Payer Address Payer Phone Subscriber Number Group Number Insured Name Patient Relationship to Insured Coverage Start Date Coverage End Date [employer] [address] [place] [address] [id number] AMELIA MOSCOSO Self - patient is the insured Medical (General) History Medical History History ICD Code PMDD Surgical History Surgery Date(Month/Year) LEFT BREAST BIOPSIES X 3 Hospitalization History Reason Date(Month/Year) 2 Vaginal Deliveries
== END 2024-04-07 07:24 | disposition home or self-care (01) ==
LOC: HO.MAMMO 07:23
PROVIDERS: PCP Internal Medicine; Visit Provider Internal Medicine
DX: Z12.31 Encounter for screening mammogram for malignant neoplasm of breast (principal)
CPT/HCPCS: 77063; 77067

== ENCOUNTER → 2024-04-07 07:30 | Outpatient (BNV) | payer OTHER, SELFPAY | PROVIDERS: PCP Internal Medicine; Visit Provider Internal Medicine | DX: Z12.31 Encounter for screening mammogram for malignant neoplasm of breast (principal) | CPT/HCPCS: 77063; 77067 ==

== ENCOUNTER 2024-09-01 09:00 | Outpatient (RCR) | payer OTHER, SELFPAY | END 2024-11-27 09:35 | disposition home or self-care (01) | LOC: HO.PT 09:00 | PROVIDERS: PCP Internal Medicine; Visit Provider Internal Medicine | DX: M70.62 Trochanteric bursitis, left hip (principal) | CPT/HCPCS: 97033; 97110; 97140; 97162 ==

== ENCOUNTER 2024-11-18 10:17 | Outpatient (REF) | payer OTHER, SELFPAY ==
--- OUTSIDE RECORDS SUMMARY | 2023-08-15 09:00 | XMS_ITS ---
Author Organization [facility] Address [address] [facility] [place] [address] Care Team Providers Care Pickle Pumper Name Role Phone Helder Billingsley MD Primary Care Provider Jeff Michel Jr [phone] REASON FOR VISIT screening Encounters Encounter Location Date Provider Diagnosis [facility] [place] [address] [place] [phone] 08/15/2023 Jeff Jeffers Jr Encounter for screening colonoscopy Z12.11 and Colon polyps K63.5 Assessments Encounter Date Diagnosis (ICD Code) Assessment Notes Treatment Notes Treatment Clinical Notes Section Notes 08/15/2023 Encounter for screening colonoscopy (ICD-10 - Z12.11) 08/15/2023 Colon polyps (ICD-10 - K63.5) Plan Of Treatment No Information Progress Notes * AMELIA MOSCOSODOB:1960 (64 yo F)Acc No.[id number]:08/15/2023 COLON WITH MAC Patient: AMELIA CARROLL Provider: Kirti Jeffers MD :1960 A ge:62 Y S ex:Female Date:08/15/2023 Address:[address] [place], [place] [phone] Pcp:Helder Billingsley MD Subjective: * Chief Complaints: * 1 . Screening. * Medical History: Objective: * Vitals: Assessment: * Assessment: 1. E ncounter for screening colonoscopy - Z12.11 (Primary) 2 . C olon polyps - K63.5 Plan: * Treatment: * Procedure Codes: 4 5380 COLONOSCOPY AND BIOPSY * * The named appointment provid er may or may not be the originator of this progress note, and it is not deemed complete until electronically signed by the appointment provider. Sign off status: Pending * Provider: Kirti Jeffers MD Date: 08/15/2023 Generated for Danilo carvajal/Yadi/Franki on: 0 2024 12:03 PM EDT
--- NOTE | ~2024-11-18 | US_ITS ---
EXAMINATION(S): 1. MM DIAGNOSTIC DIGITAL BREAST TOMOSYNTHESIS, RIGHT 2. Targeted ultrasound of the right breast CLINICAL INFORMATION: Right breast pain COMPARISON: Comparison made to multiple prior, most recent April 07, 2024, and most remote March 27, 2022. TECHNIQUE: Digital breast tomosynthesis is performed in both the mediolateral oblique, craniocaudal and XCCL views along with computer-aided detection (CAD). Synthesized 2D images are generated from the tomosynthesis. FINDINGS: BREAST COMPOSITION: There are scattered areas of fibroglandular density (ACR BI-RADS breast composition Category b). RIGHT BREAST: No significant masses, suspicious calcifications or other abnormalities are seen. In particular, no suspicious mammographic findings adjacent to the 2 triangular markers placed in the area of pain per patient. Targeted ultrasound of the right breast was performed at the location of the pain as indicated by the patient. The survey centered at about the 9:00-11:00 axis from 5 to 12 cm from the nipple did not reveal suspicious sonographic findings. US/US breast RT limited mamm only IMPRESSION: RIGHT BREAST: Negative, no evidence of malignancy. Clinical follow-up is recommended, otherwise, patient may return to bilateral routine screening mammogram expected in March 2025. ASSESSMENT: BI-RADS 1 - Negative RECOMMENDATION: 1 year F/U Results were provided to the patient at time of visit by the technologist. This patient's information was entered into a reminder system with a target due date for their next mammogram. Electronically signed by: Kenji Negrete MD 11/18/2024 01:02 PM EDT
--- OUTSIDE RECORDS SUMMARY | 2024-11-18 12:04 | XMS_ITS | Patient Health Record ---
Author Organization [facility] Address [address] [place] [address] Care Team Providers Care Workshop Manager Name Role Phone RONNIE SINGH M.D. Primary Care Provider Unavaila Krystle Gracia Unavailable [phone] Allergies Allergen (clinical drug ingredient) Drug/Non Drug [...] End Date [employer] [address] [place] [address] [phone] [id number] AMELIA MOSCOSO Self - patient is the insured Medical (General) History Medical History History ICD Code PMDD Surgical History Surgery Date(Month/Year) LEFT BREAST BIOPSIES X 3 Hospitalization History Reason Date(Month/Year) 2 Vaginal Deliveries
--- OUTSIDE RECORDS SUMMARY | 2024-11-18 12:04 | XMS_ITS | Patient Health Record ---
Author Organization [facility] Address [address] [place] [address] Care Team Providers Care Railroad Carman Name Role Phone Helder Billingsley Jr, MD Primary Care Provider Unavail able Anrdea Archer Unavailable [phone] Allergies Allergen (clinical drug ingredient) Drug/Non Drug Allergy documented on EMR Reaction Allergy Type Onset Date Status amoxicillin Amoxicillin Unknown Drug Allergy Act tere Reason For Referral No Information Medications Medication SIG (Take, Route, Frequency, Duration) Notes Start Date End Date Status Walking Boot/Pneumatic As directed Wear Daily; Duration: Until further notice 08/02/2018 Active Night Splint AFO - L1930 as directed 08/02/2018 Active Sertraline HCl 100 MG (Prior Auth: Rx Ref#:[id number]) Oral; Duration: 30 Active busPIRone HCl 15 MG (Prior Auth: Rx Ref#:[id number]) Oral; Duration: 30 Active Social History Tobacco Use: Social History Observation Description Date Details (start date - stop date) Never Smoker NA - NA Tobacco Use/Smoking Question Answer Notes Are you a: nonsmoker Additional Findings: Tobacco Non-User Current no n-smoker Alcohol Screen Question Answer Notes Did you have a drink contain ing alcohol in the past year? Yes How often did you have a dri nk containing alcohol in the past year? 2 to 4 times a month (2 points) Points 2 Interpretation Negative Tobacco use other than smoking: Question Answer Notes Are you an other tobacco user? No Plan Of Treatment Pending Test Test Name Order Date X ray : Foot, left 3V 08/02/2018 X ray : Foot, right 3V 08/02/2018 [id number] TENDON SHEATH/LIGAMENT 0 08/02/2018 Insurance Providers Payer Name Payer Address Payer Phone Subscriber Number Group Number Insured Name Patient Relationship to Insured Coverage Start Date Coverage End Date [facility] [address] [place] [address] [id number] Genevieve Ruelas Self - patient is the insured Medical (General) History Medical History History ICD Code Measles Mumps Chicken pox Surgical History Surgery Date(Month/Year)
--- OUTSIDE RECORDS SUMMARY | 2024-11-18 12:04 | XMS_ITS | Patient Health Record ---
Author Organization [facility] Address [address] [place] [address] Care Team Providers Care Outreach And Education Social Worker Name Role Phone Helder Billingsley MD Primary Care Provider Jeff Michel Jr Unavailable Allergies Allergen (clinical drug ingredient) Drug/Non Drug Allergy documented on EMR Reaction Allergy Type Onset Date Status Penicillin Unknown Drug Allergy Active Reason For Referral No [...] HCl 100 MG Oral for 90 Active Immunizations Vaccine Route Administration Date Status Comme nts Influenza Unknown 01/30/2023 Administered Social History Tobacco Use: Social History Observation Description Date Details (start date - stop date) Never Smoker NA - NA Tobacco Use/Smoking Question Answer Notes Patient is [...] Never (0 point) Points 3 Interpretation Positive Problems Problem Type SNOMED Code ICD Code Onset Dates Problem Status W/U Status Risk Notes Problem [id number] Colon cancer screening (Z12.11) Active confirmed Problem [id number] Encounter for other preprocedural examination (Z01.818) Active confirmed Plan Of Treatment Future Test Test Name Order Date COLONOSCOPY 07/25/2023 Insurance Providers Payer Name Payer Address Payer Phone Subscriber Number Group Number Insured Name Patient Relationship to Insured Coverage Start Date Coverage End Date [employer] [address] [address] [place] [address] [id number] NADEGEAMELIA Pride Self - patient is the insured Medical (General) History Medical History History ICD Code Anxiety Asthma Eczema LILA Surgical History Surgery Date(Month/Year)
== END 2024-11-18 10:18 | disposition home or self-care (01) ==
LOC: HO.MAMMO 10:17
PROVIDERS: PCP Internal Medicine; Visit Provider Internal Medicine
DX: N64.4 Mastodynia (principal)
CPT/HCPCS: 76642; 77061; 77062; 77065; 77066

== ENCOUNTER → 2024-11-18 11:00 | Outpatient (BNV) | payer OTHER, SELFPAY | PROVIDERS: PCP Internal Medicine; Visit Provider Radiology Body Imaging | DX: N64.4 Mastodynia (principal) | CPT/HCPCS: 76642; 77061; 77065 ==